=== PATIENT | female | born 1975 | race Caucasian/White ===

== ENCOUNTER 2016-04-22 11:15 | Day surgery (SDC) | payer OTHER ==
[~2016-04-22] VITALS: Ht 175.3 cm; Wt 103.9 kg
[~2016-04-22 11:15] MED LIST: DICY10CA56 PO; Lactated Ringer's 1,000 ML IV ONE
[2016-04-22] MEDS ORDERED: Propofol 10,000 mCg/mL 20 mL Inj ONE (11:16)
[2016-04-22] MEDS ORDERED: fentaNYL-PF 50 mCg/mL 2 mL Inj ONE (11:16)
[2016-04-22 11:47] VITALS: BP 120/66; PULSE 55; RESP 16; O2SAT 97
[2016-04-22 12:24] VITALS: BP 95/69; PULSE 54; RESP 14; O2SAT 96
--- NOTE | 2016-04-22 12:24 | PCM.HPANE ---
Patient Data Surgeon Admitting Provider: Attending Provider:Lanre Rodriguez MD Primary Care Physician:Kiko Canales MD Other Provider:[facility] Reason for Visit Diarrhea Ht/WT & BMI Body Mass Index Allergies Coded Allergies: shellfish derived (Verified Allergy, Unknown, 04/18/16) Medications Reported Medications Dicyclomine (Bentyl)10 Mg [id number] Mg PO QID PRN For Spasm 04/18/16 Stop/Bang Risk Assessment Category Category 1A: Patient has history of documented sleep apnea, and HAS NOT received any narcotic, sedative or anesthesia administration during this stay. Category 1B: Patient has history of documented sleep apnea, and HAS received any narcotic , sedative or anesthesia administration during this stay Category 2: Patient has SUSPECTED Obstructive Sleep Apnea, and HAS received any narcotic , sedative or anesthesia administration during this stay. Category 3: Patient has SUSPECTED Obstructive Sleep Apnea and HAS NOT received narcotic, sedative or anesthesia administration during this stay. Category 4: Outpatient in Procedural Areas with known sleep apnea or who screen positive for High Risk via the STOP/BANG questionnaire. Exam Exam General Appearance: Alert, Oriented X3, Cooperative, No Acute Distress HEENT/AIRWAY: MP 2 Lungs: Clear to Auscultation Heart: Exam Unremarkable Plan Impression Patient chart reviewed, patient interviewed and anesthestic plan with risks, benefits, and alternatives discussed, and informed consent obtained. ASA Physical Status: ASA2 Mod Systemic Disease Anesthetic Plan: MAC Bene/Risks/Altern/Consents: Yes HP Complete Prior to Induction: Yes Jamison Slade MD Apr 22, 2016 07:59
--- NOTE | 2016-04-22 12:25 | PCM.ANEP2 ---
Post Anesthesia Evaluation ASA/CMS Post Anesthesia VS in Patient's Normal Range?: Yes Resp Stable; Airway Patent?: Yes CV Function & Hydration Stable: Yes Mental Status Recovered?: Yes Pain control Satisfactory?: Yes N/V Control Satisfactory?: Yes Jamison Slade MD Apr 22, 2016 12:24
[2016-04-22 12:33] VITALS: BP 94/50; PULSE 66; RESP 14; O2SAT 100
--- NOTE | 2016-04-22 15:16 | ENDO ---
[address] [address] ENDOSCOPY PROCEDURE PATIENT: SAL OGDEN : 1975 MR#: [id number] ADMIT: 04/22/2016 JOB ID: [id number] TYPE OF OPERATION: Colonoscopy, biopsy. PREOPERATIVE DIAGNOSIS(ES): Diarrhea. POSTOPERATIVE DIAGNOSIS(ES): Small internal hemorrhoids. ANESTHESIA: Monitored anesthesia care. COMPLICATIONS: None. BLOOD LOSS: Minimal. DESCRIPTION OF PROCEDURE: After risks and benefits explained to patient, informed consent was obtained. After anesthesia administered, colonoscope was inserted from the rectum to the terminal ileum and mucosa carefully examined. Prep of the patient was excellent. After the procedure was done, the scope was withdrawn and the procedure terminated. FINDINGS: Upon inspection of the anus, no masses, hemorrhoids, ulcers, or fissures that were seen. Throughout the entire examination, there were no polyps, masses, or lesions. Biopsies taken. Random biopsies taken in the terminal ileum and random in the colon to rule out inflammatory bowel disease, microscopic colitis. Retroflexion showed small internal hemorrhoids. IMPRESSION: Small internal hemorrhoids. RECOMMENDATIONS: Await pathology results. Follow up in GI clinic as needed.
--- NOTE | 2016-04-23 11:21 | PATH ---
SURGICAL PATHOLOGY Attending Physician:Lanre Rodriguez MD CASE STATUS: Signed Out PATIENT NAME: SAL OGDEN PID: [id number] : 1975 DATE COLLECTED:04/22/2016 19:38 SPECIMEN: 1: Ileum, Biopsy 2: Colon, Biopsy CLINICAL HISTORY: 1. TERMINAL ILEUM BIOPSY 2. RANDOM COLON BIOPSY FINAL DIAGNOSIS: 1. Terminal Ileum, Biopsy: Normal small bowel mucosa. Negative for inflammation, abnormal crypt architecture, granulomas, dysplasia and malignancy. 2. Colon, Random Biopsy: Normal colonic mucosa. Negative for inflammation, microscopic colitis, granulomas, dysplasia and malignancy. ICD R19.7 GROSS DESCRIPTION: The specimen is received in two formalin filled containers labeled with the patient's name. 1). The specimen is sublabeled "TI" and consists of 2 portions of tissue which aggregate to 0.4 x 0.3 x 0.2 CM. The specimen is entirely submitted in cassette 1A. 2). The specimen is sublabeled "random colon" and consists of 5 portions of tissue which aggregate to 0.5 x 0.5 x 0.3 CM. The specimen is entirely submitted in cassette 2A. 04/22/2016 [facility] ICD-9 CODES: CPT CODES: 1: 87071 2: 16957 Electronically Signed Out Tian Gee MD, PhD [facility], [place] [address] Technical component performed at [facility], [address] [place] [address] Ave[address], [place], [address]
== END 2016-04-22 23:59 | disposition home or self-care (01) ==
LOC: END 11:15
PROVIDERS: ATTEND Internal Medicine Gastroenterology
DX: R19.7 Diarrhea, unspecified (principal); K64.8 Other hemorrhoids; G43.909 Migraine, unspecified, not intractable, without status migrainosus; G47.33 Obstructive sleep apnea (adult) (pediatric); F34.1 Dysthymic disorder
CPT/HCPCS: 45380; J2250; J7120

== ENCOUNTER 2016-05-02 08:50 | Day surgery (SDC) | payer OTHER ==
[~2016-05-02] VITALS: Ht 174 cm; Wt 103.0 kg
[2016-05-02] MEDS ORDERED: fentaNYL-PF 50 mCg/mL 2 mL Inj ONE (08:51)
[2016-05-02] MEDS ORDERED: Propofol 10,000 mCg/mL 20 mL Inj ONE (08:51)
[2016-05-02 09:01] VITALS: BP 154/84; PULSE 78; RESP 14; O2SAT 98
[2016-05-02] MEDS ORDERED: OMEP20TA86 PO (09:03)
[2016-05-02 09:30] VITALS: BP 119/71; PULSE 78; RESP 16; O2SAT 96
--- NOTE | 2016-05-02 09:35 | PCM.HPANE ---
Patient Data Surgeon Admitting Provider: Attending Provider:Lanre Rodriguez MD Primary Care Physician:Kiko Canales MD Other Provider:[facility] Reason for Visit GERD Ht/WT & BMI Body Mass Index Allergies Coded Allergies: shellfish derived (Verified Allergy, Unknown, 04/18/16) Past Anesthesia History Anesthesia History: Denies:: Abnormal Airway, Anesthesia Reactions, Difficult Intubation, Fam Anesthesia Reaction, Fam Malignant Hypertherm, Malignant Hyperthermia Diabetes History Hx Diabetes?: No MRSA MRSA: No Medications Reported Medications Omeprazole 20 Mg Tablet.dr20 Mg PO DAILY 05/02/16 Dicyclomine (Bentyl)10 Mg [id number] Mg PO QID PRN For Spasm 04/18/16 History HEENT History: Denies:: Abnormal Airway Difficult Intubation Dysphagia (SOMETIMES PAINFUL) Hearing Problem Hx of Heart Problems?: No Cardiovascular History: Denies:: AICD Atrial Fibrillation Chest Pain Hypertension Pacemaker Valvular Heart Disease Hx of Respiratory Problem?: No Respiratory History: Denies:: Asthma COPD Cough Hemoptysis Pneumonia Tuberculosis Neurological History: Denies:: CVA Hx of GI Problems?: Yes Gastrointestinal History: Positive for:: Gastroesphageal Reflux (PAST COUPLE WEEKS HAS TAKEN OTC ANTACID) Rectal Bleeding (BLACK AT TIMES ) Denies:: Cirrhosis Diverticulitis Hiatal Hernia Female Hx: Denies:: Currently Musculoskeletal History: Denies:: Joint Replacement Psycho Social History: Positive for:: Anxiety (RECENTLY QUIT SMOKING) Denies:: Hx Depression Hx Surgeries?: Yes (CERVIX STICHED CLOSED, TUMMY TUCK ) Hx Any Other Health Problems?: Yes Hx Diabetes: No Hx Alcohol Use: Yes (2 BEERS PER DAY ) Stop/Bang Risk Assessment Category Category 1A: Patient has history of documented sleep apnea, and HAS NOT received any narcotic, sedative or anesthesia administration during this stay. Category 1B: Patient has history of documented sleep apnea, and HAS received any narcotic , sedative or anesthesia administration during this stay Category 2: Patient has SUSPECTED Obstructive Sleep Apnea, and HAS received any narcotic , sedative or anesthesia administration during this stay. Category 3: Patient has SUSPECTED Obstructive Sleep Apnea and HAS NOT received narcotic, sedative or anesthesia administration during this stay. Category 4: Outpatient in Procedural Areas with known sleep apnea or who screen positive for High Risk via the STOP/BANG questionnaire. Exam Exam General Appearance: Alert, Oriented X3, Cooperative, No Acute Distress HEENT/AIRWAY: MP 2 Lungs: Clear to Auscultation Heart: Exam Unremarkable Plan Impression Patient chart reviewed, patient interviewed and anesthestic plan with risks, benefits, and alternatives discussed, and informed consent obtained. ASA Physical Status: ASA2 Mod Systemic Disease Anesthetic Plan: MAC Bene/Risks/Altern/Consents: Yes HP Complete Prior to Induction: Yes Jamison Slade MD May 02, 2016 07:34
--- NOTE | 2016-05-02 09:35 | PCM.ANEP2 ---
Post Anesthesia Evaluation ASA/CMS Post Anesthesia VS in Patient's Normal Range?: Yes Resp Stable; Airway Patent?: Yes CV Function & Hydration Stable: Yes Mental Status Recovered?: Yes Pain control Satisfactory?: Yes N/V Control Satisfactory?: Yes Jamison Slade MD May 02, 2016 09:35
[2016-05-02 09:40] VITALS: BP 124/76; PULSE 70; RESP 16; O2SAT 97
--- NOTE | 2016-05-02 10:03 | ENDO ---
[address] [address] ENDOSCOPY PROCEDURE PATIENT: SAL OGDEN : 1975 MR#: [id number] ADMIT: 05/02/2016 JOB ID: [id number] DATE OF SERVICE: 05/02/2016 TYPE OF OPERATION: Esophagogastroduodenoscopy with biopsy. PREOPERATIVE DIAGNOSIS(ES): Gastroesophageal reflux disease. POSTOPERATIVE DIAGNOSIS(ES): Mild nonerosive gastritis, status post biopsy. ANESTHESIA: Monitored anesthesia care. COMPLICATIONS: None. BLOOD LOSS: Minimal. DESCRIPTION OF PROCEDURE: After risks and benefits were explained to the patient, informed consent was obtained. After anesthesia administered, upper endoscope was then inserted into the mouth and intubated into the esophagus, stomach, second portion of duodenum. Mucosa carefully examined. After procedure was done, the scope withdrawn and procedure terminated. FINDINGS: Upon inspection of the esophagus, the esophagus was normal without masses, ulcers, or lesions. Z-line located 40 cm from the incisors. Upon entry into the stomach, there was mild nonerosive gastritis that was seen. Retroflexion was normal. Duodenal bulb, first and second portions normal. Biopsies taken of duodenum, antrum, body of stomach and distal esophagus. IMPRESSION: Nonerosive gastritis, status post biopsy. RECOMMENDATION: Await pathology results. Follow up in GI clinic as needed.
--- NOTE | 2016-05-05 12:10 | PATH ---
SURGICAL PATHOLOGY Attending Physician:Lanre Rodriguez MD CASE STATUS: Signed Out PATIENT NAME: SAL OGDEN PID: [id number] : 1975 DATE COLLECTED:05/02/2016 16:24 SPECIMEN: 1: Esophagus, Biopsy 2: Stomach, Antrum, Biopsy 3: Gastric, Biopsy 4: Duodenum, Biopsy CLINICAL HISTORY: A: DISTAL ESOPHAGUS BIOPSY B: ANTRUM BIOPSY C: GASTRIC BODY BIOPSY D: DUODENUM BIOPSY FINAL DIAGNOSIS: 1.DISTAL ESOPHAGUS BIOPSY: FRAGMENTS OF SQUAMOUS EPITHELIUM WITH SCATTERED INTRAEPITHELIAL EOSINOPHILS CONSISTENT WITH CHANGES OF CHRONIC REFLUX. No gastric-type epithelium identified. Negative for significant atypia and malignancy. 2.ANTRUM BIOPSY: FRAGMENTS OF GASTRIC ANTRAL MUCOSA WITH SUPERFICIAL HYPEREMIA WITHOUT ASSOCIATED SIGNIFICANT INFLAMMATION. Negative for evidence of Helicobacter. Negative for intestinal metaplasia. Negative for dysplasia and malignancy. 3.GASTRIC BODY BIOPSIES: MILD SUPERFICIAL CHRONIC GASTRITIS INVOLVING FUNDIC MUCOSA. Negative for evidence of Helicobacter. Negative for intestinal metaplasia. Negative for dysplasia and malignancy. 4.DUODENUM, BIOPSY: CHANGES OF MILD CHRONIC DUODENITIS WITH ASSOCIATED FOCAL FOVEOLAR METAPLASIA. Negative for evidence of celiac disease. Negative for dysplasia and malignancy. ICD10 code K21.0 GROSS DESCRIPTION: The specimen is received in four formalin filled containers labeled with the patient's name. 1). The specimen is sublabeled "distal esophagus" and consists of 2 portions of tissue which aggregate to 0.4 x 0.3 x 0.2 CM. The specimen is entirely submitted in cassette 1A. 2). The specimen is sublabeled "antrum" and consists of 2 portions of tissue which aggregate to 0.3 x 0.3 x 0.2 CM. The specimen is entirely submitted in cassette 2A. 3). The specimen is sublabeled "gastric body" and consists of 2 portions of tissue which aggregate to 0.4 x 0.4 x 0.3 CM. The specimen is entirely submitted in cassettes 3A. 4). The specimen is sublabeled "duodenal" is of 2 portions of tissue which aggregate to 0.3 x 0.3 x 0.3 CM. The specimen is entirely submitted in cassette 4A. 05/02/2016 [facility] MICRO DESCRIPTION: See diagnosis. ICD-9 CODES: CPT CODES: 1: 31818 2: 25631 3: 87893 4: 49516 Electronically Signed Out Sergey Squires MD [facility] [address], [place] [address] Technical component performed at [facility], [facility], [place], [address]
== END 2016-05-02 23:59 | disposition home or self-care (01) ==
LOC: END 08:50
PROVIDERS: ATTEND Internal Medicine Gastroenterology
DX: K21.9 Gastro-esophageal reflux disease without esophagitis (principal); K29.50 Unspecified chronic gastritis without bleeding; K29.80 Duodenitis without bleeding; Z79.899 Other long term (current) drug therapy; Z87.891 Personal history of nicotine dependence
CPT/HCPCS: 43239; J7120